=== PATIENT | female | born 1965 | race Caucasian/White ===

== ENCOUNTER 2018-06-30 10:42 | Emergency (ER) | payer BC, OTHER ==
--- NOTE | 2018-06-30 11:12 | EDM.PDOC ---
ED HPI GENERAL MEDICAL PROBLEM - General Chief Complaint: Neurological Problem Stated Complaint: HEADACHE/DIZZY-SENT BY [facility] Time Seen by Provider: 06/30/18 11:02 Source of Information: Reports: Patient History Limitations: Reports: No Limitations - History of Present Illness INITIAL COMMENTS - FREE TEXT/NARRATIVE: 53-year-old female presents for evaluation and treatment of headache, dizziness and nausea. Patient reports symptoms started suddenly yesterday. 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 She states all of a sudden she developed a severe headache, nausea, dizziness, hot flashes and diaphoresis. The headache has been constant since yesterday. It is positional. the dizziness is also positional. She reports with laying down the headache is a 4-10. When she stands up the headache becomes a 9 or 10 out of 10. Reports the headache is located on the top and the front of her head. She has been feeling nauseated but has not vomited. As stated the dizziness is positional as well and she appreciates it more when she is up and moving around. She states that she has not had anything to eat today. Last intake was last night as she was not hungry. She has no history of this. She denies any weakness, numbness or tingling to the extremities, chest pain, shortness of breath or abdominal pain. No urinary symptoms. No recent night sweats, unintentional weight loss or weight gain. Denies any recent fevers, coughs, throat pain or ear pain. patient denies any recent trauma such as motor vehicle accidents or falls. Traveled to [place] about 2 weeks ago but had no other recent travel. Patient states that she took 3 Advil this morning which did not seem to relieve her headache. Primary care providers in [facility]. Headache Pain Score (Numeric/FACES): 7 - Related Data Allergies Allergy/AdvReac Type Severity Reaction Status Date / Time erythromycin base Allergy Vomiting Verified 06/30/18 10:48 [Erythromycin Base] Home Meds: Home Meds Albuterol Sulfate [Proair Hfa] 1 puff INH ASDIRECTED 06/30/18 [History] Fluticasone/Salmeterol [Advair 250-50 Diskus] 1 puff INH ASDIRECTED 06/30/18 [ History] Past Medical History - Past Health History Medical/Surgical History: Denies Medical/Surgical History HEENT History: Reports: Impaired Vision Other HEENT History: Wears glasses Respiratory History: Reports: Asthma Musculoskeletal History: Reports: Fracture - Infectious Disease History Infectious Disease History: Reports: Chicken Pox, Mumps Social & Family History - Family History Family Medical History: Noncontributory ED ROS GENERAL - Review of Systems Review Of Systems: See Below Constitutional: Reports: Diaphoresis, Decreased Appetite. Denies: Fever, Chills , Night Sweats, Weight Loss, Weight Gain HEENT: Denies: Ear Pain, Throat Pain Respiratory: Denies: Shortness of Breath, Cough Cardiovascular: Denies: Chest Pain GI/Abdominal: Reports: Decreased Appetite, Nausea. Denies: Abdominal Pain, Vomiting : Denies: Dysuria Musculoskeletal: Denies: Back Pain Neurological: Reports: Dizziness (Worse with standing), Headache (Worse with standing). Denies: Numbness, Tingling, Difficulty Walking, Weakness ED EXAM, NEURO - Physical Exam Exam: See Below Exam Limited By: No Limitations General Appearance: Alert, WD/WN, No Apparent Distress Eye Exam: Bilateral Eye: EOMI, Normal Inspection, PERRL Ears: Normal External Exam, Normal Canal, Hearing Grossly Normal, Normal TMs Nose: Normal Inspection Throat/Mouth: Normal Inspection, Normal Lips, Normal Oropharynx, Normal Voice, No Airway Compromise Head Exam: Atraumatic, Normocephalic Neck: Normal Inspection Respiratory/Chest: No Respiratory Distress, Lungs Clear, Normal Breath Sounds Cardiovascular: Normal Peripheral Pulses, Regular Rate, Rhythm, No Murmur GI/Abdominal: Soft, Non-Tender Neurological: Alert, Normal Mood/Affect, Normal Dorsiflexion, CN II-XII Intact, Normal Plantar Flexion, Other (Normal heel to pereyra testing, normal finger to nose testing, dorsiflexion, 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 No appreciated numbness to the extremities. No pronator drift.) Psychiatric: Normal Affect, Normal Mood Skin Exam: Warm, Dry, Normal Color Course - Vital Signs Last Recorded V/S: Last Vital Signs Temp 97.1 F 06/30/18 10:49 Pulse 84 06/30/18 10:49 Resp 18 06/30/18 10:49 BP 169/103 H 06/30/18 10:49 Pulse Ox 95 06/30/18 10:49 - Orders/Labs/Meds Orders: Active Orders 24 hr Category Date Time Status Cardiac Monitoring [RC] . DIRECTED Care 06/30/18 12:38 Active Peripheral IV Care [RC] . DIRECTED Care 06/30/18 11:25 Active Labetalol [Normodyne] Med 06/30/18 13:35 Once 20 mg IVPUSH ONETIME ONE Sodium Chloride 0.9% [Saline Flush] Med 06/30/18 11:25 Active 10 ml FLUSH ASDIRECTED PRN Peripheral IV Insertion Adult [OM.PC] Routine Oth 06/30/18 11:25 Ordered Medication Orders Sodium Chloride (Saline Flush) 10 ml FLUSH ASDIRECTED PRN PRN Reason: Keep Vein Open Last Admin: 06/30/18 11:46 Dose: 10 ml Labs: Laboratory Tests 06/30/18 06/30/18 06/30/18 Range/Units 11:38 11:38 12:38 WBC 6.74 (3.98-10.04) K/mm3 RBC 4.87 (3.98-5.22) M/mm3 Hgb 14.3 (11.2-15.7) gm/L Hct 43.5 (34.1-44.9) % MCV 89.3 (79.4-94.8) fl MCH 29.4 (25.6-32.2) pg MCHC 32.9 (32.2-35.5) g/dl RDW Std Deviation 49.3 H (36.4-46.3) fL Plt Count 289 (182-369) K/mm3 MPV 8.9 L (9.4-12.3) fl Neutrophils % (Manual) 68 H (40-60) % Band Neutrophils % 0 (0-10) % Lymphocytes % (Manual) 26 (20-40) % Atypical Lymphs % 0 % Monocytes % (Manual) 4 (2-10) % Eosinophils % (Manual) 2 (0.7-5.8) % Basophils % (Manual) 0 L (0.1-1.2) Platelet Estimate Adequate RBC Morph Comment Normal PT 10.2 (9.5-12.1) SECONDS INR 0.93 APTT 25 (24-31) SECONDS Sodium 140 (136-145) mEq/L Potassium 3.7 (3.5-5.1) mEq/L Chloride 103 (98-107) mEq/L Carbon Dioxide 26 (21-32) mEq/L Anion Gap 14.7 (5-15) BUN 12 (7-18) mg/dL Creatinine 0.8 (0.55-1.02) mg/dL Est Cr Clr Drug Dosing 62.84 mL/min Estimated GFR (MDRD) > 60 (>60) mL/min BUN/Creatinine Ratio 15.0 (14-18) Glucose 101 (74-106) mg/dL Calcium 9.3 (8.5-10.1) mg/dL Magnesium 2.3 (1.8-2.4) mg/dl Total Bilirubin 0.5 (0.2-1.0) mg/dL AST 21 (15-37) U/L ALT 21 (14-59) U/L Alkaline Phosphatase 76 (46-116) U/L Total Protein 7.6 (6.4-8.2) g/dl Albumin 3.8 (3.4-5.0) g/dl Globulin 3.8 gm/dL Albumin/Globulin Ratio 1.0 (1-2) TSH 3rd Generation 0.301 L (0.358-3.74) uIU/mL Urine Color (Yellow) Urine Appearance (Clear) Urine pH (5.0-8.0) Ur Specific [place] (1.005-1.030) Urine Protein (Negative) Urine Glucose (UA) (Negative) Urine Ketones (Negative) Urine Occult Blood (Negative) Urine Nitrite (Negative) Urine Bilirubin (Negative) Urine Urobilinogen (0.2-1.0) Ur Leukocyte Esterase (Negative) Urine RBC (0-5) /hpf Urine WBC (0-5) /hpf Ur Epithelial Cells (0-5) /hpf Urine Bacteria (FEW) /hpf Urine Mucus (FEW) /hpf 06/30/18 Range/Units 12:59 WBC (3.98-10.04) K/mm3 RBC (3.98-5.22) M/mm3 Hgb (11.2-15.7) gm/L Hct (34.1-44.9) % MCV (79.4-94.8) fl MCH (25.6-32.2) pg MCHC (32.2-35.5) g/dl RDW Std Deviation (36.4-46.3) fL Plt Count (182-369) K/mm3 MPV (9.4-12.3) fl Neutrophils % (Manual) (40-60) % Band Neutrophils % (0-10) % Lymphocytes % (Manual) (20-40) % Atypical Lymphs % % Monocytes % (Manual) (2-10) % Eosinophils % (Manual) (0.7-5.8) % Basophils % (Manual) (0.1-1.2) Platelet Estimate RBC Morph Comment PT (9.5-12.1) SECONDS INR APTT (24-31) SECONDS Sodium (136-145) mEq/L Potassium (3.5-5.1) mEq/L Chloride (98-107) mEq/L Carbon Dioxide (21-32) mEq/L Anion Gap (5-15) BUN (7-18) mg/dL Creatinine (0.55-1.02) mg/dL Est Cr Clr Drug Dosing mL/min Estimated GFR (MDRD) (>60) mL/min BUN/Creatinine Ratio (14-18) Glucose (74-106) mg/dL Calcium (8.5-10.1) mg/dL Magnesium (1.8-2.4) mg/dl Total Bilirubin (0.2-1.0) mg/dL AST (15-37) U/L ALT (14-59) U/L Alkaline Phosphatase (46-116) U/L Total Protein (6.4-8.2) g/dl Albumin (3.4-5.0) g/dl Globulin gm/dL Albumin/Globulin Ratio (1-2) TSH 3rd Generation (0.358-3.74) uIU/mL Urine Color Yellow (Yellow) Urine Appearance Clear (Clear) Urine pH 7.0 (5.0-8.0) Ur Specific [place] 1.015 (1.005-1.030) Urine Protein Negative (Negative) Urine Glucose (UA) Negative (Negative) Urine Ketones 2+ H (Negative) Urine Occult Blood Negative (Negative) Urine Nitrite Negative (Negative) Urine Bilirubin Negative (Negative) Urine Urobilinogen 0.2 (0.2-1.0) Ur Leukocyte Esterase Negative (Negative) Urine RBC 0-5 (0-5) /hpf Urine WBC 0-5 (0-5) /hpf Ur Epithelial Cells 5-10 H (0-5) /hpf Urine Bacteria Few (FEW) /hpf Urine Mucus Not seen (FEW) /hpf Meds: Medications Generic Name Dose Route Start Last Admin Trade Name Freq PRN Reason Stop Dose Admin Sodium Chloride 10 ml 06/30/18 11:25 06/30/18 11:46 Saline Flush FLUSH 10 ml ASDIRECTED PRN Administration Keep Vein Open Discontinued Medications Generic Name Dose Route Start Last Admin Trade Name Freq PRN Reason Stop Dose Admin Diphenhydramine HCl 50 mg 06/30/18 11:24 06/30/18 11:44 Benadryl IVPUSH 06/30/18 11:25 50 mg ONETIME ONE Administration Hydralazine HCl 10 mg 06/30/18 12:43 06/30/18 12:56 Apresoline IVPUSH 06/30/18 12:44 10 mg ONETIME ONE Administration Hydromorphone HCl 0.5 mg 06/30/18 12:24 06/30/18 13:14 Dilaudid IVPUSH 06/30/18 12:25 0.5 mg ONETIME ONE Administration Sodium Chloride 1,000 mls @ 999 mls/hr 06/30/18 11:23 06/30/18 11:44 Normal Saline IV 06/30/18 12:23 999 mls/hr ONETIME ONE Administration Ondansetron HCl 4 mg 06/30/18 11:24 06/30/18 11:44 Zofran IVPUSH 06/30/18 11:25 4 mg ONETIME ONE Administration - Radiology Interpretation Free Text/Narrative:: Head CT Technique: Multiple axial sections through the brain were obtained. Intravenous contrast was not utilized. Findings: Questionable increased density noted within portions of the suprasellar cistern extending into the right sylvian fissure which is felt compatible with subtle subarachnoid hemorrhage. No parenchymal hemorrhage is seen. No midline shift or mass effect is seen. Bone window settings were reviewed which appears unremarkable. Visualized sinuses are clear. Impression: 1. Findings felt compatible with subtle subarachnoid hemorrhage within the suprasellar cistern and within the right sylvian fissure. Findings most likely represent nonvisualized ruptured or leaking aneurysm. - Re-Assessments/Exams Free Text/Narrative Re-Assessment/Exam: 06/30/18 13:14 I reviewed the labs and imaging with the patient. Recommended transfer to a higher-level care. She would like to at [place]. Will send to [facility] in [place] as [facility] does not have the capabilities needed for her care. Discussed the case with Dr. Carbajal , neurosurgeon at [facility] in [place]. Agrees to accept the patient. After we targeted the blood pressure for 140 systolic. Recommend use hydralazine. Hydralazine ordered. Patient will go by fixed wing. Unfortunately, due to Difficulty obtaining a flight the closest likely was an hour and a half away. 06/30/18 13:44 b/p has still been in the 150 systolic. 20 of IV labetalol ordered. Departure - Departure Time of Disposition: 13:47 Disposition: DC/Tfer to Acute Hospital 02 Condition: Serious Clinical Impression: Subarachnoid hemorrhage - Discharge Information *PRESCRIPTION DRUG MONITORING PROGRAM REVIEWED*: No *COPY OF PRESCRIPTION DRUG MONITORING REPORT IN PATIENT KEIKO: No Referrals: Liberty Hackett NP [Primary Care Provider] - Forms: ED Department Discharge Additional Instructions: Will by fixed wing transport to [facility] in [place]. Patient will go through the ED. Dr. Carbajal accepting. - My Orders Last 24 Hours: My Active Orders 06/30/18 11:25 Peripheral IV Care [RC] . DIRECTED Sodium Chloride 0.9% [Saline Flush] 10 ml FLUSH ASDIRECTED PRN Peripheral IV Insertion Adult [OM.PC] Routine 06/30/18 12:38 Cardiac Monitoring [RC] . DIRECTED 06/30/18 13:35 Labetalol [Normodyne] 20 mg IVPUSH ONETIME ONE - Assessment/Plan Last 24 Hours: My Active Orders 06/30/18 11:25 Peripheral IV Care [RC] . DIRECTED Sodium Chloride 0.9% [Saline Flush] 10 ml FLUSH ASDIRECTED PRN Peripheral IV Insertion Adult [OM.PC] Routine 06/30/18 12:38 Cardiac Monitoring [RC] . DIRECTED 06/30/18 13:35 Labetalol [Normodyne] 20 mg IVPUSH ONETIME ONE
[2018-06-30] MEDS ORDERED: Sodium Chloride 0.9% 1,000 ML IV ONE (11:23)
[2018-06-30] MEDS ORDERED: Ondansetron 4 MG/2 ML SDV IVPUSH ONE (11:24)
[2018-06-30] MEDS ORDERED: diphenhydrAMINE 50 MG/ML SDV IVPUSH ONE (11:24)
[2018-06-30] MEDS ORDERED: Sodium Chloride 0.9% 10 ML Syringe FLUSH PRN (11:25)
--- NOTE | 2018-06-30 12:14 | CT ---
Head CT Technique: Multiple axial sections through the brain were obtained. Intravenous contrast was not utilized. Findings: Questionable increased density noted within portions of the suprasellar cistern extending into the right sylvian fissure which is felt compatible with subtle subarachnoid hemorrhage. No parenchymal hemorrhage is seen. No midline shift or mass effect is seen. Bone window settings were reviewed which appears unremarkable. Visualized sinuses are clear. Impression: 1. Findings felt compatible with subtle subarachnoid hemorrhage within the suprasellar cistern and within the right sylvian fissure. Findings most likely represent nonvisualized ruptured or leaking aneurysm. Diagnostic code #5
[2018-06-30] MEDS ORDERED: HYDROmorphone 0.5 MG/0.5 ML SYRINGE IVPUSH ONE (12:24)
[2018-06-30] MEDS ORDERED: hydrALAZINE 20 MG/ML SDV IVPUSH ONE (12:43)
[2018-06-30] MEDS ORDERED: Labetalol 100 MG/20 ML MDV IVPUSH ONE (13:35)
[2018-06-30 13:52] VITALS: BP 160/88
== END 2018-06-30 15:20 ==
LOC: JD.ED 10:42
DX: I60.9 Nontraumatic subarachnoid hemorrhage, unspecified (principal); Z88.1 Allergy status to other antibiotic agents
CPT/HCPCS: 36415; 70450; 80053; 81001; 83735; 84443; 85007; 85027; 85610; 85730; 96361; 96374; 96375; 99285; J0360; J1170; J1200; J2405; J3490; J7040; J7050

== ENCOUNTER 2019-08-13 07:11 | Day surgery (SDC) | payer BC, OTHER ==
--- NOTE | 2019-08-12 14:13 | PCM.PREANE ---
Preanesthetic Assessment - Anesthesia/Transfusion/Family Hx Anesthesia History: Prior Anesthesia Without Reaction Other Type of Anesthesia Reaction Comment: Denies any known problems, no family hx Family History of Anesthesia Reaction: No Transfusion History: No Prior Transfusion(s) Intubation History: Unknown - Review of Systems General: No Symptoms Pulmonary: No Symptoms (COPD: chronic bronchitis-Quit smoking in 2017/40pk/year history/Last used marijuana: yesterday ETOH: 1-2 beers/day), Cough Cardiovascular: No Symptoms, Dyspnea on Exertion Gastrointestinal: No Symptoms Neurological: No Symptoms (History of Subarachnoid hemorrhage in 2018), Headache (occasionally), Seizure (Age of 28: thought to be stress related.) Other: Reports: Easy Bleeding, Easy Bruising, Depression, Anxiety - Physical Assessment NPO Status Date: 08/12/19 NPO Status Time: 23:30 Vital Signs: HR:80 Resp:16 BP:153/87 Temp:98.2f Sat:91% Height: 1.57 m Weight: 71 kg ASA Class: 3 Mental Status: Alert & Oriented x3 Airway Class: Mallampati = 2 Dentition: Reports: Normal Dentition, Caries Thyro-Mental Finger Breadths: 3 Mouth Opening Finger Breadths: 3 ROM/Head Extension: Full Lungs: Clear to Auscultation, Normal Respiratory Effort, Decreased Breath Sounds Cardiovascular: Regular Rate, Regular Rhythm, No Murmurs - Lab Values: All labs reviewed and noted and within acceptable ranges to proceed with scheduled procedure. - Imaging/EKG Impressions: EKG: SR rate= 62 - Allergies Allergies/Adverse Reactions: Allergies Allergy/AdvReac Type Severity Reaction Status Date / Time erythromycin base AdvReac Vomiting Verified 08/12/19 14:33 [Erythromycin Base] - Anesthesia Plan Pre-Op Medication Ordered: None - Acknowledgements Anesthesia Type Planned: General Anesthesia, MAC Pt an Appropriate Candidate for the Planned Anesthesia: Yes Alternatives and Risks of Anesthesia Discussed w Pt/Guardian: Yes Pt/Guardian Understands and Agrees with Anesthesia Plan: Yes PreAnesthesia Questionnaire - Past Health History Medical/Surgical History: Denies Medical/Surgical History HEENT History: Reports: Impaired Vision Other HEENT History: Wears glasses Respiratory History: Reports: Asthma Musculoskeletal History: Reports: Fracture - Infectious Disease History Infectious Disease History: Reports: Chicken Pox, Mumps - HOME MEDS Home Medications: Home Meds Albuterol Sulfate [Proair Hfa] 1 puff INH ASDIRECTED 06/30/18 [History] Fluticasone/Salmeterol [Advair 250-50 Diskus] 1 puff INH ASDIRECTED 06/30/18 [ History] Albuterol [Proventil Neb Soln] 1 dose INH QID PRN 08/12/19 [History] Calcium Carb/D3/Magnesium/Zinc [Tim Mag Zinc + D3] 2 tab PO DAILY 08/12/19 [ History] Cannabidiol (Cbd) Extract [CBD Oil] 1 dose PO DAILY 08/12/19 [History] Cyanocobalamin (Vitamin B-12) [Vitamin B-12] 1,000 mcg PO DAILY 08/12/19 [ History] Escitalopram [Lexapro] 20 mg PO DAILY 08/12/19 [History] Fluocinonide [Lidex 0.05% Crm] 1 dose TOP BID 08/12/19 [History] Ibuprofen [Advil Migraine] 600 - 800 mg PO DAILY 08/12/19 [History] valACYclovir [Valtrex] 2,000 mg PO BID PRN 08/12/19 [History] - CURRENT (IN HOUSE) MEDS Current Meds: Current Medications Lactated Ringer's (Ringers, Lactated) 1,000 mls @ 125 mls/hr IV ASDIRECTED MARIANO Stop: 08/13/19 23:00 Lidocaine/Sodium Bicarbonate (Buffered Lidocaine 1% In Ns 8.4%) 0.25 ml IDERM ONETIME PRN PRN Reason: Prior to IV Start Stop: 08/13/19 18:00 Sodium Chloride (Saline Flush) 10 ml FLUSH ASDIRECTED PRN PRN Reason: Keep Vein Open Stop: 08/13/19 18:00
[~2019-08-13 07:11] MED LIST: Dexamethasone 4 MG/ML 5 ML MDV ONE; Ketorolac 30 MG/ML SDV ONE; Lactated Ringers 1,000 ML IV SCH; Lidocaine 1% 6 ML ONE; Lidocaine 1%/Sod Bicarbonate in NS 8.4% 1 ML Syringe IDERM PRN; Midazolam 1 MG/ML 2 ML SDV ONE; Ondansetron 4 MG/2 ML SDV ONE; Propofol 200 MG/20 ML SDV ONE; Sodium Chloride 0.9% 10 ML Syringe FLUSH PRN; ceFAZolin 1 GM Vial ONE; fentaNYL 100 MCG/2 ML SDV ONE
[2019-08-13] MEDS ORDERED: Albuterol 0.083% 2.5 MG/3 ML Neb Soln ONE (07:47)
[2019-08-13] MEDS ORDERED: Albuterol 0.083% 2.5 MG/3 ML Neb Soln NEB ONE (07:49)
[2019-08-13] MEDS ORDERED: Albuterol 6.7 GM Inhaler INH ONE (08:30)
[2019-08-13] MEDS ORDERED: HYDROmorphone 0.5 MG/0.5 ML Syringe IVPUSH PRN (08:39)
[2019-08-13] MEDS ORDERED: ePHEDrine 50 MG/ML SDV IVPUSH PRN (08:39)
[2019-08-13] MEDS ORDERED: fentaNYL 100 MCG/2 ML SDV IVPUSH PRN (08:39)
[2019-08-13] MEDS ORDERED: Ondansetron 4 MG/2 ML SDV IVPUSH PRN (08:39)
[2019-08-13] MEDS ORDERED: Albuterol 0.083% 2.5 MG/3 ML Neb Soln NEB PRN (08:39)
--- NOTE | 2019-08-13 09:01 | PCM.OPNOTE ---
- General Post-Op/Procedure Note Date of Surgery/Procedure: 08/13/19 Operative Procedure(s): hysteroscopy, dilation and curettage Findings: thin atrophic endometrium Pre Op Diagnosis: postmenopausal bleeding Post-Op Diagnosis: Same Anesthesia Technique: General LMA Primary Surgeon: Rosemary Frank Anesthesia Provider: Betty Degroot Fluid Replacement, Intraop: 200 (scope in/out 300/295) Output, Urine Amount: 25 EBL in mLs: 5 Complications: None Condition: Good Free Text/Narrative:: Patient taken to OR. Prepped and draped in lithotomy position in [facility]. Exam under anesthesia revealed small uterus. No blood in vagina. Speculum placed. Anterior lip of cervix grasped with single toothed tenaculum. Cervix slowly dilated to allow passage of 5 mm hysteroscope. Significant vagal response with bradycardia with each dilation. Hysteroscopy revealed thin normal endometrium. No polyps. No tissue. Curettage preformed. Specimen handed off. Instruments removed.
--- NOTE | 2019-08-13 09:15 | PCM.POSTAN ---
POST ANESTHESIA ASSESSMENT - MENTAL STATUS Mental Status: Alert - VITAL SIGNS Vital Signs: Last Vital Signs Temp 98.2F 08/13/19904 Pulse 91 08/13/19904 Resp 14 08/13/19904 BP 122/76 08/13/19904 Pulse Ox 94 08/13/19904 - RESPIRATORY Respiratory Status: Respiratory Rate WNL, Airway Patent, O2 Saturation Stable, Supplemental Oxygen - CARDIOVASCULAR CV Status: Pulse Rate WNL, Blood Pressure Stable - GASTROINTESTINAL GI Status: No Symptoms - POST OP HYDRATION Hydration Status: Adequate & Stable
--- NOTE | 2019-08-13 09:28 | PCM48HPAN ---
Post Anesthesia Note - EVALUATION WITHIN 48HRS OF ANESTHETIC Vital Signs in Normal Range: Yes Patient Participated in Evaluation: Yes Respiratory Function Stable: Yes Airway Patent: Yes Cardiovascular Function Stable: Yes Hydration Status Stable: Yes Pain Control Satisfactory: Yes Nausea and Vomiting Control Satisfactory: Yes Mental Status Recovered: Yes Vital Signs: Last Vital Signs Temp 36.9 C 08/13/19 09:20 Pulse 82 08/13/19 09:20 Resp 8 L 08/13/19 09:20 BP 122/76 08/13/19 09:20 Pulse Ox 97 08/13/19 09:20
[2019-08-13 14:41] VITALS: BP 117/68; PULSE 87
== END 2019-08-13 10:45 | disposition home or self-care (01) ==
LOC: JD.SDS 07:11
PROVIDERS: ATTEND Obstetrics & Gynecology
DX: N95.0 Postmenopausal bleeding (principal); N85.8 Other specified noninflammatory disorders of uterus; J44.9 Chronic obstructive pulmonary disease, unspecified; F32.9 Major depressive disorder, single episode, unspecified; F41.9 Anxiety disorder, unspecified; Z88.1 Allergy status to other antibiotic agents; Z87.891 Personal history of nicotine dependence; Z79.51 Long term (current) use of inhaled steroids; Z79.899 Other long term (current) drug therapy
CPT/HCPCS: 58558; 94640; A9270; J1100; J1885; J2001; J2250; J2405; J2704; J3010; J7120; J0690

== ENCOUNTER 2022-11-27 11:59 | Day surgery (SDC) | payer OTHER ==
[~2022-11-27 11:59] MED LIST changes: -Dexamethasone 4 MG/ML 5 ML MDV ONE; -Ketorolac 30 MG/ML SDV ONE; -Lidocaine 1% 6 ML ONE; -Midazolam 1 MG/ML 2 ML SDV ONE; -Ondansetron 4 MG/2 ML SDV ONE; -Propofol 200 MG/20 ML SDV ONE; +Sodium Chloride 0.9% 10 ML Syringe FLUSH SCH; -ceFAZolin 1 GM Vial ONE; -fentaNYL 100 MCG/2 ML SDV ONE
[2022-11-27] MEDS ORDERED: Ondansetron 4 MG/2 ML SDV IVPUSH PRN (14:14)
[2022-11-27] MEDS ORDERED: Propofol 200 MG/20 ML SDV ONE ×2 (14:33→14:34)
[2022-11-27] MEDS ORDERED: Midazolam 1 MG/ML 2 ML SDV ONE (14:33)
[2022-11-27] MEDS ORDERED: Lidocaine 1% 4 ML ONE (14:33)
[2022-11-27 16:09] VITALS: BP 158/88; PULSE 80
== END 2022-11-27 16:06 | disposition home or self-care (01) ==
LOC: JD.SDS 11:59
PROVIDERS: ATTEND Surgery
DX: Z12.11 Encounter for screening for malignant neoplasm of colon (principal); K57.30 Diverticulosis of large intestine without perforation or abscess without bleeding; K63.5 Polyp of colon; J44.9 Chronic obstructive pulmonary disease, unspecified; F41.9 Anxiety disorder, unspecified; F32.A Depression, unspecified; J45.909 Unspecified asthma, uncomplicated; M81.0 Age-related osteoporosis without current pathological fracture; Z80.0 Family history of malignant neoplasm of digestive organs; Z98.890 Other specified postprocedural states; Z79.899 Other long term (current) drug therapy; Z88.1 Allergy status to other antibiotic agents
CPT/HCPCS: J2250; J2704; J3490; J7120